=== PATIENT | female | born 1955 ===

== ENCOUNTER 2023-05-27 06:09 | Day surgery (SDC) | payer OTHER ==
[~2023-05-27] VITALS: Ht 149.9 cm; Wt 99.8 kg
[~2023-05-27 06:09] MED LIST: ACTOS15 MG PO; BETIMOL5 M2 OP; GLIMEPIRIDE1 M1 PO; INSULIN SYRING1 EA29 SUBCUTANEO; LEVO-T50 MCG PO; LIPITOR20 MG PO; XELPROS2.5 ML OP; ZESTRIL5 MG PO
[2023-05-27] MEDS ORDERED: POVIDONE-IODINE 118 ML BOTT TOP ONE ×2 (08:57→10:00)
[2023-05-27] MEDS ORDERED: IBU600 MG PO (10:33)
== END 2023-05-27 15:10 | disposition home or self-care (01) ==
LOC: CIR.AMB 06:09
PROVIDERS: ATTEND Obstetrics & Gynecology Gynecology
DX: N85.00 Endometrial hyperplasia, unspecified (principal)